=== PATIENT | female | born 1995 | race Caucasian/White ===

== ENCOUNTER → 2020-12-24 13:28 | Outpatient (BNVA) | payer SELFPAY | DX: Z76.89 Persons encountering health services in other specified circumstances (principal) ==

== ENCOUNTER → 2021-12-31 11:23 | Outpatient (BNVA) | payer SELFPAY | DX: Z02.83 Encounter for blood-alcohol and blood-drug test (principal) ==

== ENCOUNTER → 2022-01-05 09:44 | Outpatient (BNVA) | payer SELFPAY | DX: Z02.83 Encounter for blood-alcohol and blood-drug test (principal) ==